=== PATIENT | male | born 1955 | race Asian ===

== ENCOUNTER 2018-08-13 14:37 | Outpatient (CLI) | payer OTHER | END 2018-08-13 14:38 | disposition home or self-care (01) | LOC: BICRAD 14:37 | PROVIDERS: ATTEND Family Medicine | DX: R76.12 Nonspecific reaction to cell mediated immunity measurement of gamma interferon antigen response without active tuberculosis (principal); H55.02 Latent nystagmus | CPT/HCPCS: 71046 ==